=== PATIENT | male | born 1990 | race Two or more races ===

== ENCOUNTER 2017-04-20 16:13 | Emergency (ER) | payer MEDICAID ==
[~2017-04-20] VITALS: Ht 185.4 cm; Wt 74.8 kg
[2017-04-20] MEDS ORDERED: NORCO 5-325 TA1 EACH ORAL (16:48)
[2017-04-20] MEDS ORDERED: AUGMENTIN 875-1 EAC1 ORAL (16:48)
[2017-04-20] MEDS ORDERED: MEDROL4 MG ORAL (16:48)
[2017-04-20 16:55] VITALS: BP 124/83
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
== END 2017-04-20 16:55 | disposition home or self-care (01) ==
LOC: EMR 16:50
DX: H72.92 Unspecified perforation of tympanic membrane, left ear (principal)
CPT/HCPCS: 99284

== ENCOUNTER 2019-09-27 15:09 | Emergency (ER) | payer MEDICAID ==
[~2019-09-27] VITALS: Ht 185.4 cm; Wt 83.9 kg
[~2019-09-27 15:09] MED LIST: AUGMENTIN 875-1 EAC1 ORAL; MEDROL4 MG ORAL; NORCO 5-325 TA1 EACH ORAL
--- NOTE | 2019-09-27 15:40 | NUR ---
ED Nurse Note: Pt walked into ER with c/o left upper abdominal pain x 1 month. Pain scale a 10/10 on numeric scale guarding left upper abdomen. Abdomen tender. Pt AAO x4, vital signs stable as documented, breathing even and unlabored. No cardiac or respiratory distress noted.
[2019-09-27 15:50] VITALS: BP 120/73
[2019-09-27] MEDS ORDERED: Omnipaque-300 100ml vial INJ PRN (16:15)
[2019-09-27 16:42] LABS: HEMATOCRIT 42.7 % (42.0-52.0); MEAN CORPUSCULAR VOLUME 90 FL (80-99); PLATELET COUNT 165 K/UL (150-450); RED BLOOD COUNT 4.74 M/UL (4.70-6.10); RED CELL DISTRIBUTION WIDTH 11.1 % (11.6-14.8); WHITE BLOOD COUNT 2.6 K/UL (4.8-10.8)
[2019-09-27 16:48] LABS: ANION GAP 8 mmol/L (5-15); BLOOD UREA NITROGEN 16 mg/dL (7-18); CALCIUM 8.7 MG/DL (8.5-10.1); CARBON DIOXIDE 30 MMOL/L (21-32); CHLORIDE 104 MMOL/L (98-107); CREATININE 1.3 MG/DL (0.55-1.30); POTASSIUM 4.1 MMOL/L (3.5-5.1); SODIUM 142 MMOL/L (136-145)
[2019-09-27 16:53] LABS: ALANINE AMINOTRANSFERASE 28 U/L (12-78); ALBUMIN 4.3 G/DL (3.4-5.0); ALBUMIN/GLOBULIN RATIO 1.3 (1.0-2.7); ALKALINE PHOSPHATASE 77 U/L (46-116); ASPARTATE AMINO TRANSFERASE 23 U/L (15-37); BILIRUBIN,TOTAL 0.9 MG/DL (0.2-1.0)
--- NOTE | 2019-09-27 17:55 | NUR ---
ED Nurse Note: called CT scan for reminder.
[2019-09-27] MEDS ORDERED: Ketorolac 30mg Inj IM ONE (18:00)
--- NOTE | 2019-09-27 18:06 | NUR ---
Offered pt Toradol 30mg IM per CLEMENTE Dumont. S ordered . Pt refused and stated he is waiting for radiology result.
--- NOTE | 2019-09-27 18:08 | NUR ---
CLEMENTE made aware.
--- NOTE | 2019-09-27 19:17 | NUR ---
HAND-OFF: Report given to MARC SCHWARTZ.
--- NOTE | 2019-09-27 19:34 | Diagnostic Imaging Report ---
INDICATION: Chest and abdominal pain TECHNIQUE: Continuous helical transaxial imaging of the chest, abdomen and pelvis was obtained from the lung bases to the pubic symphysis during intravenous contrast administration. Multiple phases of enhancement obtained. Coronal 2-D reformats were also obtained. Study obtained in a Siemens sensation [address] Automatic Exposure Control was utilized. Total Dose length Product (DLP): 1287.[address] Dose Index Volume (CTDIvol): 170.5 mGy COMPARISON: None FINDINGS: CT CHEST: The lungs are clear. The mediastinum and heart appear unremarkable. No pleural or pericardial effusion identified. Osseous structures are unremarkable. CT ABDOMEN & PELVIS: Attenuation of the liver is normal. The spleen, kidneys, pancreas appear unremarkable. Gallbladder is contracted. There is no free fluid. Urinary bladder is unremarkable. IMPRESSION: No acute findings. [facility] has communicated the preliminary results to the Emergency Department. Their findings are largely concordant with this report. The CT scanner at [facility] is accredited by the [employer] and the scans are performed using dose optimization techniques as appropriate to a performed exam including Automatic Exposure control.
--- NOTE | 2019-09-27 19:43 | Emergency Room Report ---
History of Present Illness General Chief Complaint: Abdominal Pain Source: Patient Present Illness HPI 29-year-old male with no significant past medical history here complaining of 1 month of left sided upper abdominal chest pain. Patient denies any nausea, vomiting, diarrhea, constipation, blood in stool. Denies fever and chills, diffuse chest pain, shortness of breath, cough and congestion. Patient does report that he is a daily tobacco smoker and also applies hot sauce to all of his food. Reports that the pain is worse when he is laying down or sitting up. Denies any strenuous physical activity, follow-up fall or injury. Has not taken medication for symptom relief. Has not yet seen primary care physician. Reports that he has this feeling as if there are bubbles in the left upper quadrant. Denies flatulence. Denies recent travel. Allergies: Coded Allergies: No Known Allergies (Unverified , 04/20/17) Patient History Past Medical History: see triage record Past Surgical History: unable to obtain Pertinent Family History: none Immunizations: UTD Reviewed Nursing Documentation: PMH: Agreed; PSxH: Agreed Nursing Documentation-PMH Past Medical History: No Stated History Review of Systems All Other Systems: negative except mentioned in HPI Physical Exam Vital Signs Date Time Temp Pulse Resp B/P (MAP) Pulse Ox O2 Delivery O2 Flow Rate FiO2 09/27/19 15:31 97.9 60 18 120/73 (89) 96 Room Air Sp02 EP Interpretation: reviewed, normal General Appearance: no apparent distress, alert, GCS 15, non-toxic Head: normocephalic, atraumatic Eyes: bilateral eye normal inspection, bilateral eye PERRL ENT: hearing grossly normal, normal pharynx, no angioedema, normal voice Neck: full range of motion, supple/symm/no masses Respiratory: chest non-tender, lungs clear, normal breath sounds, no rhonchi, no retraction, no accessory muscle use, no wheezing, speaking full sentences Cardiovascular #1: regular rate, rhythm, no edema, no murmur Gastrointestinal: normal bowel sounds, non tender, soft, no mass, no organomegaly, no peritonitis, no bruit, non-distended, no guarding, no hernia, no pulsatile mass, no rebound Rectal: deferred Genitourinary: normal inspection, no CVA tenderness Musculoskeletal: back normal, gait/station normal, normal range of motion, non- tender, no calf tenderness Neurologic: alert, oriented x3, responsive, motor strength/tone normal, sensory intact, speech normal Psychiatric: judgement/insight normal, memory normal, mood/affect normal, no suicidal/homicidal ideation Skin: no rash Lymphatic: no adenopathy Medical Decision Making PA Attestation Diagnosis and treatment plans were reviewed and discussed with my supervising physician Dr. Watson Diagnostic Impression: Primary Impression: Acute costochondritis Additional Impression: GERD (gastroesophageal reflux disease) ER Course 29-year-old male with no significant past medical history here complaining of 1 month of left sided upper abdominal chest pain. Patient denies any nausea, vomiting, diarrhea, constipation, blood in stool. Denies fever and chills, diffuse chest pain, shortness of breath, cough and congestion. Patient does report that he is a daily tobacco smoker and also applies hot sauce to all of his food. Reports that the pain is worse when he is laying down or sitting up. Denies any strenuous physical activity, follow-up fall or injury. Has not taken medication for symptom relief. Has not yet seen primary care physician. Reports that he has this feeling as if there are bubbles in the left upper quadrant. Denies flatulence. Denies recent travel. Ddx considered but are not limited to: [place], Angina, COPD, GERD, acute costochondritis, GERD, gastritis, rib fracture Vital signs: are WNL, pt. is afebrile H&PE are most consistent with GERD, acute costochondritis ORDERS: CBC, CMP, chest abdominal CT scan with contrast, omeprazole, Tylenol, lidocaine patches ED INTERVENTIONS: Tylenol, patient refused Toradol injection DISCHARGE: At this time pt. is stable for d/c to home. Will provide printed patient care instructions, and any necessary prescriptions. Care plan and follow up instructions have been discussed with the patient prior to discharge. Patient to follow-up with primary care provider for further assessment, avoid strenuous physical activity, avoid taking NSAIDs as it may exacerbate GERD symptoms, follow-up with primary care for referral to bell neck hammerer and if worsening symptoms return to the emergency room. Avoid smoking CT/MRI/US Diagnostic Results CT/MRI/US Diagnostic Results : Imaging Test Ordered: CT chest abdomen with contrast Impression Within normal limits Last Vital Signs Date Time Temp Pulse Resp B/P (MAP) Pulse Ox O2 Delivery O2 Flow Rate FiO2 09/27/19 16:51 97.9 09/27/19 15:50 18 120/73 96 Room Air 09/27/19 15:50 60 Disposition: HOME, SELF-CARE Condition: Stable Scripts Lidocaine Patch* (Lidoderm Patch*) 1 Each Adh..patch 1 PATCH TOPIC DAILY, #7 PATCH 0 Refills Patch(es) may remain in place for up to 12 hours in any 24-hour period. Prov: Tim Mixon 09/27/19 Acetaminophen* (TYLENOL EXTRA STRENGTH*) 500 Mg Tablet 500 MG ORAL Q6H PRN for Mild Pain/Temp > 100.5, #30 TAB 0 Refills Prov: Tim Mixon 09/27/19 Omeprazole (OMEPRAZOLE) 20 Mg Tablet. 20 MG ORAL DAILY, #30 TAB Prov: Tim Mixon 09/27/19 Patient Instructions: Costochondritis, [id number], Food Choices for Gastroesophageal Reflux Disease, Adult Additional Instructions: Take medication as directed, follow-up with your primary care provider, if worsening symptoms return to the emergency room Tim Mixon Sep 27, 2019 19:43
[2019-09-27] MEDS ORDERED: LIDODERM700 M1 TOPIC (19:44)
[2019-09-27] MEDS ORDERED: TYLENOL EXTRA500 MG ORAL (19:44)
[2019-09-27] MEDS ORDERED: OMEPRAZOLE20 M3 ORAL (19:44)
--- NOTE | 2019-09-27 19:55 | NUR ---
IV SL removed,ID band removed, patient discharged home with hjis ,ACI and Rx given. Denies pain at a discharge.
[2019-09-27 20:07] VITALS: BP 126/81
[2019-09-27 20:08] VITALS: BP 126/81
== END 2019-09-27 20:00 | disposition home or self-care (01) ==
LOC: EMR 15:39
DX: M94.0 Chondrocostal junction syndrome [Tietze] (principal); K21.9 Gastro-esophageal reflux disease without esophagitis; F17.200 Nicotine dependence, unspecified, uncomplicated
CPT/HCPCS: 36415; 71260; 74177; 80053; 85007; 85025; Q9967; Z7502; 99284